=== PATIENT | female | born 1995 | race Caucasian/White ===

== ENCOUNTER 2022-05-21 07:59 | Emergency (ER) | payer MEDICAID ==
[~2022-05-21] VITALS: Ht 165.1 cm; Wt 102.7 kg
[2022-05-21 08:08] VITALS: BP 114/80
--- NOTE | 2022-05-21 08:15 | NUR ---
PT AMB TO BED 11.
[2022-05-21] MEDS ORDERED: DOPPLER MC ONE (08:43)
[2022-05-21] MEDS ORDERED: ACET-2619 PO (08:43)
[2022-05-21] MEDS ORDERED: ONDA-188 SL (08:43)
--- NOTE | 2022-05-21 08:49 | NUR ---
26/F PRESENTS TO ED WITH C/O LOWER ABDOMINAL PAIN RADIATING TO LOWER BACK SINCE 5AM. PATIENT REPORTS SHE IS 16 WEEKS , DENIES VAGINAL BLEEDING OR DISCHARGE, STATES SHE FEELS MOVEMENT. PATIENT DENIES N/V/D, CP, SOB. DENIES TAKING MEDS FOR PAIN, PATIENT IS A0.
--- NOTE | 2022-05-21 09:02 | NUR ---
Patient discharged with v/s stable. Written and verbal after care instructions ABOUT [facility] given and explained. Patient alert, oriented and verbalized understanding of instructions. Ambulatory with steady gait. All questions addressed prior to discharge. ID band removed. Patient advised to follow up with PMD. Rx of TYLENOL AND ZOFRAN given. Patient educated on indication of medication including possible reaction and side effects. Opportunity to ask questions provided and answered.
== END 2022-05-21 09:02 | disposition home or self-care (01) ==
LOC: MED 07:59
DX: O26.892 Other specified pregnancy related conditions, second trimester (principal); M54.32 Sciatica, left side; M54.31 Sciatica, right side; Z3A.15 15 weeks gestation of pregnancy
CPT/HCPCS: 81002; 81025; 99284